=== PATIENT | female | born 1990 | race Caucasian/White ===

== ENCOUNTER 2016-08-11 14:37 | Emergency (ER) | payer OTHER ==
[~2016-08-11] VITALS: Ht 154.9 cm; Wt 138.2 kg
[2016-08-11] MEDS ORDERED: KEFLEX500 MG PO (16:53)
[2016-08-11 17:16] VITALS: BP 132/93
== END 2016-08-11 17:17 | disposition home or self-care (01) ==
LOC: EME 14:37
PROC: 0HBRXZZ Excision of Toe Nail, External Approach (ICD-10-PCS; principal; 2016-08-11)
DX: L60.0 Ingrowing nail (principal)
CPT/HCPCS: 99281; 99282; S0020